=== PATIENT | male | born 1950 | race Caucasian/White ===

== ENCOUNTER → 2016-12-01 | Outpatient (CLI) | payer OTHER, BC ==
[~2016-12-01] VITALS: Ht 180.3 cm; Wt 109.8 kg
[~2016-12-01] MED LIST: B12; CELEBREX 200 M200 M1 PO; CLONAZEPAM 0.50.5 M1 PO; CYCLOBENZAPRINE10 MG PO; CYMBALTA30 MG PO; CYMBALTA60 MG PO; ELIQUIS5 MG PO; FLEXERIL PO; KEPPRA 500 MG500 M1 PO; LATUDA20 MG PO; LIPITOR 20 MG T20 M1 PO; MONISTAT 324 GM TOP; MS CONTIN15 MG PO; OXYCODONE HCL5 M1 PO; OXYCODONE-ACET1 EAC2 PO; OXYCONTIN10 M1 PO; PERCOCET 10-321 EACH PO; PRAVACHOL40 MG PO; TOPROL XL25 MG PO; TRAZODONE 150150 M1 PO; TRAZODONE HCL100 MG PO; TRILEPTAL150 MG PO; VITAMIN E400 UNIT PO; ZONEGRAN100 MG PO; [UNRECOGNIZED DRUG - OTHER]
--- NOTE | ~2016-12-01 | HPC ---
[facility] [place] [address] PAIN MANAGEMENT CONSULTATION Name: REE ADEN Room #: REG RADHA Cain#: [id number] Admission: 12/01/16 Attend Phys: Abebe Whitten MD Discharge: Date of : 54 Report #: [id number] THIS REPORT FOR: //name// CC: Abebe Woodard DATE OF SERVICE: 12/01/2016 DATE OF SERVICE: 12/01/2016 Followup visit for axial low back pain in the area of the sacroiliac joint bilaterally, management of intrathecal infusion pump. The patient returns to pain clinic today and reports that his pain is up in the region of his low back. On most days, his pain is in 8. His son was in the waiting room, but I did go out to talk with ____, and he said that he complains nearly daily of pain down low in the low back bilateral. Today, he says he has some radiating pain into the left leg, but typically the pain is mostly axial. Described as cramping, sharp, stabbing and aching. In treatment of pain, he utilizes his intrathecal pump effectively. It provides a low dose of hydromorphone currently at 0.9 mg a day. So, about a month and a half to 2 months of pain medication available in his pump. Other medications are Lipitor, clonazepam, Trileptal, Cymbalta, Flexeril, Eliquis, Toprol, trazodone and Zonegran. ALLERGIES: None. PAST MEDICAL HISTORY: Remarkable for depression, hyperlipidemia, and seizure disorder. He is on Eliquis due to atrial fibrillation. PHYSICAL EXAMINATION: He is a very pleasant 66-year-old. His blood pressure 120/74, heart rate 57, irregular. Examination of the pump area reveals small bruise above the pump. This is likely where he was pumped into the edge of the table or counter top. The pump is fairly deep. Examination of the low back reveals minimal tenderness over the midline, but there is bilateral significant tenderness over the sacroiliac joints. Straight leg raising is negative for radiculopathy. Sensation and strength in lower extremities is normal. IMPRESSION: 1. Low back pain with significant tenderness over the sacroiliac joints with Christina. 2. Management of intrathecal infusion pump. RECOMMENDATIONS: [facility] [address] [place] [address] PAIN MANAGEMENT CONSULTATION Name: REE ADEN Room #: REG [facility] Ant#: [id number] Admission: 12/01/16 Attend Phys: Abebe Whitten MD Discharge: Date of : 54 Report #: [id number] 1. Intrathecal pump evaluation was performed today due to difficulties with his last refill. He had a couple of days where he felt odd after his refill and he also is having increased pain. We have had recent episodes of intrathecal pump ____ and also 1 pump that has been infusing in an erratic fashion. Because of his previous issues, I felt that it would be worthwhile to perform pump aspiration test, in which I would simply remove the volume into the pump confirmed with that expected by a c programmer and reinstilled it back into the pump. 2. Bilateral sacroiliac joint pain has persisted now since his last visit with Dr. Lynn. Dr. Lynn recommended consideration of bilateral sacroiliac joints under fluoroscopic guidance and I would agree that seems to be worthwhile approach, given the fact that he is already on an intrathecal medication and is not helping. I would also consider increasing his intrathecal pump by 10% at the same time to see if we can provide better relief of his low back pain without starting additional medication. PROCEDURE: 1. Intrathecal pump aspiration and refill. The skin was prepped with ChloraPrep and skin anesthetized. His pump is very difficult to palpate at unusual angle. Despite our experience of filling multiple pumps per week, I did find it also challenging to identify the center of the pump on more than one occasion and needle insertion site. Like Dr. Lynn, I choose to take him to the fluoroscopic suite where we intended to perform sacroiliac joint injections to perform the test. Once there, I was able to identify the location of the port and perform the aspiration test without difficulty. We expected reservoir volume of 14.3 and I removed 13.5. This is within accepted limits. The medication was reinstilled back into the pump and a reprogramming session was performed to provide 11% increase and hydromorphone at 1.0 mg per day. Due to the Eliquis, he did develop certain significant bruising around the area of the needle insertion site and ice was applied after the procedure in the recovery room. This should resolve with time and should not be a serious complication. 2. Bilateral sacroiliac joints under fluoroscopic guidance. Skin prepped with ChloraPrep bilaterally. I began first on the left. Significant arthrosis of the sacroiliac joint was observed on the left. A #25-gauge needle was gently advanced into the lower capsule of the sacroiliac joint using #25-gauge needle. I injected 1 mL of Omnipaque demonstrating spread of dye along the joint space. This was then followed by 3 mL of 0.25% bupivacaine and 20 mg of triamcinolone. Needle was removed. C-arm was then moved to the right and image injection was performed there. He tolerated both injections well, ice was placed in recovery room. He was observed for a short time of discharge. [facility] [address] [place] [address] PAIN MANAGEMENT CONSULTATION Name: REE ADEN Room #: REG RADHA Cain#: [id number] Admission: 12/01/16 Attend Phys: Abebe Whitten MD Discharge: Date of : 54 Report #: [id number] We will follow up for pump refill and about a month and a half, we will call if there are any problems or questions. By: 1127 1230 Abebe Whitten MD /nt
[2016-12-01 09:26] VITALS: BP 120/74
== END | disposition home or self-care (01) ==
LOC: PAIN 07:01
DX: M53.3 Sacrococcygeal disorders, not elsewhere classified (principal); M54.5 Low back pain
CPT/HCPCS: 62370; G0260

== ENCOUNTER → 2017-01-26 | Outpatient (CLI) | payer OTHER, BC ==
[~2017-01-26] VITALS: Ht 180.3 cm; Wt 106.9 kg
[~2017-01-26] MED LIST changes: +ANDROGEL1.25 GM TD
--- NOTE | ~2017-01-26 | HPC ---
[facility] [place] [address] [address] PAIN MANAGEMENT CONSULTATION Name: KEIKOREE Rodriguez Room #: REG RADHA RamDylanAutumnDylan#: [id number] Admission: 01/26/17 Attend Phys: Abebe Whitten MD Discharge: Date of : 54 Report #: [id number] THIS REPORT FOR: //name// CC: Abebe Woodard NP DATE OF SERVICE: 01/26/2017 Followup visit for management of intrathecal infusion pump. The patient presents to pain clinic for refill of his intrathecal infusion pump. He has hydromorphone infusing at 1 mg per day. He is very pleased with his pump, still providing good relief of pain. Pain score today in the clinic was 1-2. No adjustments in the infusion necessary. Pain has mostly been in his right hip recently. PHYSICAL EXAMINATION: Pleasant, alert and oriented, small little butterfly rash across the bridge of his nose. His blood pressure is 137/85, heart rate 92, respirations 16. BMI is 32.0. He is able to move and stand without too much difficulty. He ambulates without a cane or walking device. He has tenderness in his low back and also pain with internal and external rotation. Straight leg raising on the right hip. IMPRESSION: 1. Low back pain with tenderness of the sacroiliac joints and lumbar radiculopathy. 2. Bilateral sacroiliac joint improved from injections. 3. Osteoarthritis, multiple joints including hips. 4. History of depression. PROCEDURE: Refill and reprogramming of intrathecal infusion pump. Skin was prepped with ChloraPrep. Skin anesthetized and a 22-gauge non-coring needle advanced in the intrathecal pump. Old medication removed and discharged. Pump was refilled with hydromorphone and reprogrammed. His next refill is in about 90 days. By: [id number] [id number] Abebe Whitten MD /nt
[2017-01-26 14:28] VITALS: BP 137/85
== END ==
LOC: PAIN 06:37
DX: M54.16 Radiculopathy, lumbar region (principal); M16.10 Unilateral primary osteoarthritis, unspecified hip; F32.9 Major depressive disorder, single episode, unspecified

== ENCOUNTER → 2017-04-23 | Outpatient (CLI) | payer OTHER, BC ==
[~2017-04-23] VITALS: Ht 180.3 cm; Wt 108.5 kg
--- NOTE | ~2017-04-23 | HPC ---
[facility] [address] [place] [place] [address] PAIN MANAGEMENT CONSULTATION Name: REE ADEN Room #: REG RADHA Josef.#: [id number] Admission: 04/23/17 Attend Phys: Abebe Whitten MD Discharge: Date of : 54 Report #: [id number] THIS REPORT FOR: //name// CC: Abebe Woodard NP DATE OF SERVICE: 04/23/2017 Followup visit for management of intrathecal infusion pump. The patient returns to pain clinic today for refill of his intrathecal infusion pump. He is doing well on a very low dose of hydromorphone. He is pleased with his intrathecal pump! He is not receiving any other medications currently from our clinic. He is off of all other opioids. He reports that the pain is mostly in his back, although he is having some increased pain into his right leg and right knee. I have agreed to increase his intrathecal pump by about 20% today. I will also increase the concentration of his hydromorphone at next visit, so he does not have to have ____ visits for refill. I think we can do that safely without increasing his risk for intrathecal granuloma. PHYSICAL EXAMINATION: He is pleasant, outgoing man. He is a strong Pentecostal and wears his bright blue T-shirt emblazoned with the name Ej on the front! He is able to move from sitting to standing position, walks without antalgic features. He has tenderness across his low back pain into his right hip with movements, internal and external rotation. Straight leg raising is positive. IMPRESSION: 1. Chronic low back pain with spondylosis and radiculopathy. 2. Osteoarthritis, multiple joints including right hip and knee. 3. History of depression, currently he is doing well from a mood standpoint. PLAN: Refill and reprogram intrathecal infusion pump. PROCEDURE: Skin was prepped with ChloraPrep, skin anesthetized and a 22-gauge non-coring needle advanced into the intrathecal pump. Old medication removed and discarded. Would expect his volumes were equal to those retrieved. The pump was then refilled with hydromorphone and reprogrammed to a dose of 1.2 mg per day. Refill is scheduled for about 2 months. By: 1654 11 Abebe Whitten MD /nt
[2017-04-23 13:29] VITALS: BP 124/61
== END | disposition home or self-care (01) ==
LOC: PAIN 07:26
DX: Z45.1 Encounter for adjustment and management of infusion pump (principal); M47.26 Other spondylosis with radiculopathy, lumbar region; G89.29 Other chronic pain; M19.90 Unspecified osteoarthritis, unspecified site; F32.89 Other specified depressive episodes; Z98.890 Other specified postprocedural states

== ENCOUNTER → 2017-06-29 | Outpatient (CLI) | payer OTHER, BC ==
[~2017-06-29] VITALS: Ht 180.3 cm; Wt 114.8 kg
[~2017-06-29] MED LIST changes: +LASIX 20 MG TAB20 MG PO
--- NOTE | ~2017-06-29 | HPC ---
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 The patient continues to do exceptionally well with his intrathecal pump. He is on no other medications for pain. He reports he has been very active since senior living in his jehovah's witness and is happy with his pain control. His pain score is 0 today. He has an intrathecal pump infusing 1.2 mg of hydromorphone. We have been refilling it about every 76 days. I have increased that concentration today to 10 mg per mL, which will take him at about 4 months. He has a history of depression, but he has done extremely well since pain has been under better control. PHYSICAL EXAMINATION: Pleasant, outgoing [place], moves easily from sitting to standing position. He has mild tenderness across his low back. He is much more obese than when we put in the pump, and the pump is very deep and difficult to palpate. IMPRESSION: 1. Chronic low back pain with spondylosis and radiculopathy, well controlled with his intrathecal pump. 2. Osteoarthritis, multiple joints, primarily right hip and knee. 3. History of depression, in remission. 4. Management of intrathecal infusion pump with refill and reprogramming. Skin was prepped with ChloraPrep. Skin anesthetized and a 22-gauge non-coring needle advanced in the pump. Old medication removed. We expected 3.5 and that we obtained, and it was discarded per protocol. It was then refilled with 19.5 mg of hydromorphone 10 mg per mL, which would require bridge bolus. We kept his dose after the bridge bolus at 1.2 mg a day, will take him up to 144 days. We will see him then for refill. No other medications were ordered. No other treatments are requested. By: [id number] Abebe Whitten MD /nt
[2017-06-29 11:02] VITALS: BP 124/82
== END | disposition home or self-care (01) ==
LOC: PAIN 06:59
DX: M47.26 Other spondylosis with radiculopathy, lumbar region (principal); G89.29 Other chronic pain; M19.90 Unspecified osteoarthritis, unspecified site; F32.5 Major depressive disorder, single episode, in full remission; F41.8 Other specified anxiety disorders; Z79.899 Other long term (current) drug therapy; Z98.890 Other specified postprocedural states

== ENCOUNTER → 2017-11-19 | Outpatient (CLI) | payer OTHER, BC ==
[~2017-11-19] VITALS: Ht 180.3 cm; Wt 107.0 kg
[~2017-11-19] MED LIST changes: +PROBIOTIC1 EAC1 PO
--- NOTE | ~2017-11-19 | HPC ---
[facility] [place] [address] PAIN MANAGEMENT CONSULTATION Name: REE ADEN Room #: REG LISSSuzan Cain#: [id number] Admission: 11/19/17 Attend Phys: Abebe Whitten MD Discharge: Date of : 54 Report #: [id number] THIS REPORT FOR: //name// CC: Gaurav Woodard NP DATE OF SERVICE: 11/19/2017 Followup visit for chronic low back pain with spondylosis and management of intrathecal infusion pump. The patient returns to pain clinic today for refill of his intrathecal infusion pump. He is extremely grateful for this device. It has provided excellent control of his back pain without the need for systemic opioids. He has been receiving hydromorphone at a rate of 1.1 mg per 24 hours. He has had relatively few side effects. The pump has functioned very well over the course of the last several years and I see him really only for pump refill and followup. He tells me that he has been having several bouts of upper respiratory tract infection throughout this winter. His has had the same. It sounds as though they have been trading it back and forth in the house. He has been on antibiotics. He has not been hospitalized; he has not been in Emergency Room. He has had no increased episodes of pain necessitating additional treatments. He remains active. He is a very devout Religious and follows his beliefs faithfully. 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 This is very rewarding to him. We reviewed the PQRS. He does have osteoarthritis of the hip and has plans to have hip replacement in the future. In addition, he has spondylosis. He is receiving no opioid medications and is not on an opioid agreement. He is not a fall risk and he does not use a device or cane or walker for support. He denies use of both tobacco and alcohol. He is not on a blood thinner. PHYSICAL EXAMINATION: VITAL SIGNS: Blood pressure 135/88, heart rate 80. His oxygen saturation is 96%. MUSCULOSKELETAL: He moves easily from standing position and ambulates without difficulty. He has tenderness across his low back with pain in flexion and extension. He also has tenderness and pain in the hip on the left consistent with osteoarthritis. IMPRESSION: 1. Chronic back pain with spondylosis. 2. Osteoarthritis. 3. Management of intrathecal infusion pump. [address] [address] PAIN MANAGEMENT CONSULTATION Name: KEIKOREE Room #: REG [facility]#: [id number] Admission: 11/19/17 Attend Phys: Abebe Whitten MD Discharge: Date of : 54 Report #: [id number] 4. History of depression, well controlled, much improved since beginning pump therapy. PROCEDURE: Refill and reprogram of intrathecal infusion pump. Skin was prepped with ChloraPrep. Skin anesthetized and a 22-gauge non-coring needle advanced into the intrathecal pump. Old medication was removed and discarded. The pump was then refilled with 19.5 mL of hydromorphone 10 mg/mL. A reprogramming session was performed. The information was checked by myself and the nurse and his program chart was initialed. A copy was given to the patient. He is scheduled for his refill in the upcoming months. <ELECTRONICALLY SIGNED> By: Abebe Whitten MD 12/14/17 1408 1031 1147 Abebe Whitten MD /nt
[2017-11-19 10:22] VITALS: BP 123/67
== END | disposition home or self-care (01) ==
LOC: PAIN 09-10 12:47
DX: Z45.2 Encounter for adjustment and management of vascular access device (principal); F32.9 Major depressive disorder, single episode, unspecified; Z79.899 Other long term (current) drug therapy; M19.90 Unspecified osteoarthritis, unspecified site; G89.29 Other chronic pain

== ENCOUNTER → 2018-09-03 | Outpatient (CLI) | payer OTHER, BC ==
--- NOTE | 2018-09-08 11:18 | HPC ---
[facility] [address] [address] PAIN MANAGEMENT CONSULTATION Name: REE ADEN Room #: REG [facility] Kilo.#: [id number] Admission: 09/03/18 Attend Phys: Abebe Whitten MD Discharge: Date of : 54 Report #: [id number] THIS REPORT FOR: //name// CC: Elmo Woodard NP DATE OF SERVICE: 09/03/2018 Followup visit for management of intrathecal infusion pump. The patient returns to pain clinic today for refill of his intrathecal pump. He continues to do well. He has chronic low back pain and spondylosis. The pump medication seems to work quite effectively to help reduce his pain to a tolerable level. The tolerable level is 0 with sitting, but when he is up and walking, the pain can be more severe. He does not want significant changes in his pump. He is morbidly obese. He has gained a lot of weight over the course of last year and refilling his pump has become more challenging. For safety reasons, we have decided to perform this under fluoroscopic guidance, something we do rarely. I did agree to try to do it in the room today, but still was unable to identify the pump opening for refill, so the refill under fluoroscopic guidance seems prudent. PQRS REVIEW: 1. He has no complaints of osteoarthritis noted on the chart. 2. BMI is reportedly 35.0. He appears to have gained more weight than that. 3. Blood pressure 125/73, heart rate 59. 4. Pain intensity 1/10 today. 5. He is not a fall risk. 6. He is on Eliquis. 7. He is not treated for hypertension. 8. He is not taking opioid medications other than that in his pump and is not on an opioid agreement. 9. He does not use tobacco or alcohol. IMPRESSION: 1. Chronic low back pain with spondylosis. 2. Management of intrathecal infusion pump with refill and reprogramming. PROCEDURE: He was taken to fluoroscopic suite. He was placed supine, skin prepped with ChloraPrep over the pump. A 22-gauge non-coring needle advanced in the pump. 2 mL of old medication was removed and discarded per protocol. Pump [facility] [address] [place] [address] PAIN MANAGEMENT CONSULTATION Name: KEIKOREE Room #: [facility].#: [id number] Admission: 09/03/18 Attend Phys: Abebe Whitten MD Discharge: Date of : 54 Report #: [id number] was then refilled with 19.5 mL of medication, hydromorphone 10 mg/mL. Remaining medication in the filter was discarded. He was taken to recovery room for a short stay following the refill and programming information was checked by myself and the nurse he was discharged. Followup visit planned for refill in January. No oral medications were written. <ELECTRONICALLY SIGNED> By: Abebe Whitten MD 09/08/18 1118 1702 1936 Abebe Whitten MD /sina
== END | disposition home or self-care (01) ==
LOC: PAIN 10:30
DX: Z45.1 Encounter for adjustment and management of infusion pump (principal); G89.29 Other chronic pain; M47.816 Spondylosis without myelopathy or radiculopathy, lumbar region; E66.01 Morbid (severe) obesity due to excess calories; I10 Essential (primary) hypertension; Z68.35 Body mass index [BMI] 35.0-35.9, adult; Z79.899 Other long term (current) drug therapy

== ENCOUNTER → 2018-11-25 | Outpatient (CLI) | payer OTHER, BC ==
[~2018-11-25] VITALS: Ht 180.3 cm; Wt 114.1 kg
[~2018-11-25] MED LIST changes: +PROTONIX40 M1 PO; +RANITIDINE HCL300 MG PO
[2018-11-25 10:42] VITALS: BP 126/68
--- NOTE | 2018-11-25 11:16 | NUR ---
Pain Clinic Assessment: 1. History of Osteoarthritis: Not Applicable History of Rheumatoid Arthritis: Not Applicable 2. Height: 5 ft. 11 in. 180.3 cm. Weight: 251.6 lb. oz. 114.125 kg. Patient's BMI: 35.1 3. Vital Signs: BP: 126/68 Pulse: 61 Resp: 20 Temp: 02 Sat: 98 ECG Mon: 4. Pain Intensity: 2 SIT 8-9 AVG 5. Fall Risk: Dizziness: N Needs help standing or walking: N Fallen in the last 3 months: N Fall risk comments: 6. Patient on Blood Thinner: MADYSON 7. History of Hypertension: N 8. Opioid Therapy greater than 6 weeks: N Opiate Contract Signed: 9. Risk Assessment Tool Provided: 10. Functional Assessment Tool: 11. Recreational Drug Use: Never Drug Type: Tobacco Use: Never Smoker Tobacco Type: Amount or Packs/day: How Many Years: Alcohol Use: No Frequency: Quant:
--- NOTE | 2018-11-26 07:54 | HPC ---
[facility] [address] [place] [address] PAIN MANAGEMENT CONSULTATION Name: REE ADEN Room #: REG [facility] Ant#: [id number] Admission: 11/25/18 ������������������ Attend Phys: Isi Friedman Discharge: ������������������ Date of : 54 Report #: [id number] THIS REPORT FOR: //name// CC: Isi Woodard NP DATE OF SERVICE: 11/25/2018 CHIEF COMPLAINT: Followup for chronic low back pain, spondylosis and management of his intrathecal pump. HISTORY OF PRESENT ILLNESS: The patient returns to the pain clinic today stating that he needs to have his pump adjusted. He had seen his GI doctor recently and he has been having some stomach issues as well as some breathing problems. They were wondering if it might be related to his pump. The patient has been stable on this current dose for a significant amount of time, but he has lost 20 pounds according to the patient and they are wondering if maybe he did not need as much medication. The patient tells me he has no back pain currently. He has some back pain when he is doing some activity, but most significantly he is having stomach issues that are causing him pain of 8-9/10 as a cramping, sharp, achy pain. The patient tells me he has seen his director home next week and having a cardiac scan as well. He would like to have his pump adjustment today to see if his breathing issues are related to his narcotic in his pump. ALLERGIES: No known drug allergies. MEDICATIONS: Atorvastatin 20 mg at bedtime, Protonix 40 mg daily, Zantac 300 mg daily, probiotic daily, Lasix 20 mg daily, clonazepam 0.5 mg p.r.n., Cymbalta 90 mg daily, Eliquis 5 mg daily, B12 daily, trazodone 100 mg at bedtime, Zonegran 100 mg at bedtime. PQRS: 1. The patient has osteoarthritis in his hips and lower back. He denies any rheumatoid arthritis. 2. Height is 5 feet 11 inches, weight is 251. The patient's weight is down from his last visit. BMI is 35 today, which according to our records is stable, but the patient tells us that he is down 20 pounds. 3. Vital signs are blood pressure 126/68, pulse of 61, respirations 20, oxygen sat is 98%. 4. Pain score is 2/10 in his abdomen and denies back pain. 5. Fall risk. Denies dizziness, does not need help walking or standing and has not fallen in the last 3 months. 6. The patient is on Eliquis and he does [place] [address] PAIN MANAGEMENT CONSULTATION Name: REE ADEN Room #: REG Suzan Cain#: [id number] Admission: 11/25/18 ������������������ Attend Phys: Isi Friedman Discharge: ������������������ Date of : 54 Report #: [id number] 7. Opioid therapy is greater than 6 weeks; therefore, no opioid signed contract is on the chart. 8. Recreational drug use. He denies. He is not a smoker and he does not drink alcohol. The patient is not on any narcotics orally, so therefore we did not check the prescription monitoring system. He only gets that intrathecally. PHYSICAL EXAMINATION: GENERAL: This is a well-developed, well-nourished, well-hydrated gentleman who appears his stated age, placing his pain score today in his lower back as 0 and his abdomen 2, currently can go up to 8-9 when he is having significant abdominal issues. HEENT: Normocephalic, atraumatic. Extraocular eye muscles are intact. Mucous membranes are moist. LUNGS: The patient has no shortness of breath with sitting here. His respirations are nonlabored at 14 respirations per minute. His oxygen sat today was 99%. The patient tells me he has not had any difficulty breathing today. MUSCULOSKELETAL: The patient has mild tenderness across his low back. He does complain of some abdominal discomfort. The patient has no edema noted in his lower extremities today. He does tell me that occasionally he will notice some swelling in his legs when he has pulse ox that may restrict his circulation. IMPRESSION: 1. Chronic low back pain with spondylosis. 2. Osteoarthritis. 3. Management of intrathecal pump with a decrease in his rate today. PROCEDURE: We decreased his intrathecal pump with a nurse, Kaitlynn, checking my calculations from hydromorphone 1.199 mg per day to a total of 1.081 mg per day. This is a 10% decrease. We will see if this helps the patient feel like he is having any changes in his breathing. I do not think that it is related to his pump because this medicine has been at the stable rate for a significant amount of time, but we will decrease it and see if this is helpful for the patient. If he has not noticed any changes and once he has had his cardiac scans, then we may increase it if he feels like he needs to be increased again. The patient's refill date now for his intrathecal pump will be 02/03/2019. The patient and verbalized understanding. They will call us after they have seen the director home and know the plan of care there and give us an update on how the patient's pain is doing. The patient is seen in collaboration with Dr. Abebe Whitten. ��������������������������������������������� <ELECTRONICALLY SIGNED> ���������������������������������������� By: Isi Friedman ��������������������������������������������� 11/26/18 0754 1342 0005 Isi Friedman /nt
== END | disposition home or self-care (01) ==
LOC: PAIN 06:46
DX: Z45.1 Encounter for adjustment and management of infusion pump (principal); G89.29 Other chronic pain; M47.896 Other spondylosis, lumbar region; Z79.899 Other long term (current) drug therapy; M16.10 Unilateral primary osteoarthritis, unspecified hip

== ENCOUNTER → 2018-12-01 | Outpatient (CLI) | payer OTHER, BC ==
[~2018-12-01] VITALS: Ht 180.3 cm; Wt 112.9 kg
[2018-12-01 12:59] VITALS: BP 128/77
--- NOTE | 2018-12-01 13:00 | NUR ---
Pain Clinic Assessment: 1. History of Osteoarthritis: Not Applicable History of Rheumatoid Arthritis: Not Applicable 2. Height: 5 ft. 11 in. 180.3 cm. Weight: 249.0 lb. oz. 112.946 kg. Patient's BMI: 34.7 3. Vital Signs: BP: 128/77 Pulse: 76 Resp: 18 Temp: 02 Sat: 94 ECG Mon: 4. Pain Intensity: 0 5. Fall Risk: Dizziness: N Needs help standing or walking: N Fallen in the last 3 months: N Fall risk comments: 6. Patient on Blood Thinner: ELIQUIS 7. History of Hypertension: N 8. Opioid Therapy greater than 6 weeks: N Opiate Contract Signed: 9. Risk Assessment Tool Provided: 10. Functional Assessment Tool: 11. Recreational Drug Use: Never Drug Type: Tobacco Use: Never Smoker Tobacco Type: Amount or Packs/day: How Many Years: Alcohol Use: No Frequency: Quant:
--- NOTE | 2018-12-02 07:19 | HPC ---
[facility] [place] [address] PAIN MANAGEMENT CONSULTATION Name: REE ADEN Room #: REG [facility] [id number] Admission: 12/01/18 ������������������ Attend Phys: Isi Friedman Discharge: ������������������ Date of : 54 Report #: [id number] THIS REPORT FOR: //name// CC: Isi Friedman Gaurav Borrego DATE OF SERVICE: 12/01/2018 CHIEF COMPLAINT: Chronic low back pain, spondylosis and management of intrathecal pump. HISTORY OF PRESENT ILLNESS: The patient returns to the pain clinic today requesting a decrease in his pump again. He tells me that he still feels like he is having some breathing issues of shortness of breath and would like his pump decreased. He tells me that he is not having any pain. He has not noticed any change in his pain score since we decreased him 10% a week ago. He, at that time, was supposed to have a stress test done this week for his cardiac issues and his respiratory issues that he has been having. He tells me he has dyspnea even at rest, but the patient tells me that he is leaving to go to [place] soon. His uszheo-[id number] is not doing very well and he and his are driving out there. He tells me he would like his pump decreased before he goes out of town. ALLERGIES: No known allergies. MEDICATIONS: Lipitor 20 mg at bedtime, Protonix 40 mg daily, Zantac 300 mg daily, probiotic once daily, Lasix 20 mg daily, clonazepam 0.5 mg p.r.n., Cymbalta 90 mg daily, Eliquis 5 mg daily, B12 daily, trazodone 100 mg at bedtime and Zonegran 100 mg at bedtime. PQRS: 1. The patient has osteoarthritis in his hips and lower back. He denies any rheumatoid arthritis. 2. Height is 5 feet 11 inches, weight is 249, BMI is 34.7. 3. Vital signs, blood pressure 128/77, pulse is 76, respirations 18, oxygen sat is 94%. 4. Pain score is 0. 5. Fall risk. Denies dizziness, does not need help walking or standing. Has not fallen in the last 3 months. 6. The patient takes Eliquis. Does not take any medicines for hypertension. 7. Opioid therapy is greater than 6 weeks via his pain pump. His risk assessment tool is low. His functional assessment is low as well. 8. Recreational drug use, he denies. He is not a smoker and does not drink alcohol. We did not check the prescription monitoring system since the patient is not filling opioid narcotics from us. [address] [address] PAIN MANAGEMENT CONSULTATION Name: REE ADEN Room #: REG [facility] Ant#: [id number] Admission: 12/01/18 ������������������ Attend Phys: Isi Friedman Discharge: ������������������ Date of : 54 Report #: [id number] PHYSICAL EXAMINATION: GENERAL: This is a well-developed, well-nourished, well-hydrated gentleman who appears his stated age. Placing his pain score at 0 for his current lower back pain. He is not complaining of any abdominal pain either today. HEENT: Normocephalic, atraumatic. Extraocular eye muscles are intact. Mucous membranes are moist. LUNGS: The patient does complain of some dyspnea even at rest. The patient does seem to have problems catching his breath today, though his oxygen saturation is 94% on room air. His respirations were 18 respirations per minute. MUSCULOSKELETAL: Mild tenderness across his lower back. He does not complain of any abdominal discomfort today. He has no edema noted in his lower extremities. He does have some bruising noted on his arms due to his Eliquis, blood thinner that he takes. IMPRESSION: 1. Chronic low back pain with spondylosis. 2. Osteoarthritis. 3. Management of intrathecal pump. 4. Complains of dyspnea today. PROCEDURE: We decreased his intrathecal pump today with Nivia nurse. By checking it together, he currently takes hydromorphone concentration of 10 mg/mL. We decreased his rate to 0.973 mg per day, this is a 10% decrease per the patient's request. He thinks this may be causing some of his dyspnea problems. I did again encourage the patient to see his poolroom table attendant and asked him if his poolroom table attendant was okay with him going to [place] and postponing his cardiac stress test that he was to have done, he said yes, that was fine with moving it to January. I have reiterated again my concerns that I do not believe his respiratory issues are related to his narcotics and his intrathecal pump as he had been on narcotics for a long time and had been at a stable dose. I did encourage him that if he does go to [place] to assist with his ill [id number] if he has any cardiac or respiratory issues, he needs to go to the closest Emergency Room, bring all of his medications with him as well as his intrathecal pump readout to the Emergency Room. The patient verbalizes understanding of this. 5. The patient will call for an appointment for pump refill when he gets back into town. He is now due 02/10/2019. I instructed him to call if need be for an appointment anytime sooner if he has problems arise. ��������������������������������������������� <ELECTRONICALLY SIGNED> ���������������������������������������� By: Isi Friedman ��������������������������������������������� 12/02/18 0719 [id number] Isi Friedman /nt
== END | disposition home or self-care (01) ==
LOC: PAIN 12:35
DX: Z45.1 Encounter for adjustment and management of infusion pump (principal); M47.9 Spondylosis, unspecified; G89.29 Other chronic pain; M16.0 Bilateral primary osteoarthritis of hip; I10 Essential (primary) hypertension; Z79.899 Other long term (current) drug therapy

== ENCOUNTER → 2019-01-05 | Outpatient (CLI) | payer OTHER, BC ==
[~2019-01-05] VITALS: Ht 180.3 cm; Wt 115.7 kg
[2019-01-05 09:23] VITALS: BP 135/78
--- NOTE | 2019-01-05 09:30 | NUR ---
Pain Clinic Assessment: 1. History of Osteoarthritis: Not Applicable History of Rheumatoid Arthritis: Not Applicable 2. Height: 5 ft. 11 in. 180.3 cm. Weight: 255.0 lb. oz. 115.668 kg. Patient's BMI: 35.6 3. Vital Signs: BP: 135/78 Pulse: 74 Resp: 16 Temp: 02 Sat: 95 ECG Mon: 4. Pain Intensity: 7 5. Fall Risk: Dizziness: N Needs help standing or walking: N Fallen in the last 3 months: N Fall risk comments: 6. Patient on Blood Thinner: LONGQUIS 7. History of Hypertension: N 8. Opioid Therapy greater than 6 weeks: N Opiate Contract Signed: 9. Risk Assessment Tool Provided: HIGH 10. Functional Assessment Tool: 11. Recreational Drug Use: Never Drug Type: Tobacco Use: Never Smoker Tobacco Type: Amount or Packs/day: How Many Years: Alcohol Use: Past use Frequency: Quant: 30 YEARS AGO
--- NOTE | 2019-01-06 13:27 | HPC ---
[facility] [address] [place] [address] PAIN MANAGEMENT CONSULTATION Name: REE ADEN Room #: REG [facility] Josef.#: [id number] Admission: 01/05/19 ������������������ Attend Phys: Isi Friedman Discharge: ������������������ Date of : 54 Report #: [id number] THIS REPORT FOR: //name// CC: Isi Friedman Gaurav Borrego DATE OF SERVICE: 01/05/2019 CHIEF COMPLAINT: Chronic low back pain, spondylosis and management of his intrathecal pump. HISTORY OF PRESENT ILLNESS: This is a very pleasant 68-year-old gentleman who returned to the pain clinic to have his intrathecal pump increased. He was here in November several times complaining of shortness of breath, telling us that he thought it was related to his intrathecal pump and asked for it to be decreased. Then, he went to [place] to help care for his [id number] for a while. He continued to have shortness of breath while he was there and his pain increased, so he is back from [place] today wanting it to be increased back up again. The patient tells me that he is having a cardiac stress test next week and he is also having his BiPAP adjusted that he recently received from a sleep study that showed he had severe sleep apnea. He has realized that his pump is not causing his breathing issues. It is either cardiac or respiratory related. The patient complains of low back pain, right hip pain, knee pain, rating as 7/10 today, worse when he is standing or going up steps. He says that sitting and lying down are helpful. He does complain of some constipation and uses MiraLax to control that. He would like a refill or a readjustment with an increase of his pump and to make his pump refill appointment today. ALLERGIES: No known drug allergies. MEDICATIONS: Atorvastatin 20 mg at bedtime, Protonix 40 mg daily, Zantac 300 mg daily, probiotic daily, Lasix 20 mg daily, clonazepam 0.5 mg p.r.n., Cymbalta 90 mg daily, Eliquis 5 mg daily, vitamin B12 daily, trazodone 100 mg at bedtime, Zonegran 100 mg at bedtime and Symproic one table p.o. daily. PQRS: 1. The patient has osteoarthritis in his hips and his lower back. Denies any rheumatoid arthritis. 2. Height is 5 feet 11 inches, weight is 255, BMI is 35. 3. Vital signs: Blood pressure 135/78, pulse is 74, respirations 16, oxygen sat is 95. 4. Pain score is 7/10. 5. Fall risk. He denies dizziness. Does not need help walking or sitting. He has not fallen in the last three months. [address] [address] PAIN MANAGEMENT CONSULTATION Name: REE ADEN Room #: REG [facility] Ant#: [id number] Admission: 01/05/19 ������������������ Attend Phys: Isi Friedman Discharge: ������������������ Date of : 54 Report #: [id number] 6. The patient is on blood thinner of Eliquis and does take medicines for hypertension. 7. Opioid therapy is greater than six weeks. His risk assessment tool is high and his functional assessment is 33/70. 8. Recreational drug use: He denies. He is not a smoker and does not drink alcohol, but did in the past. We did not check the prescription monitoring system since he is not getting narcotics from us. PHYSICAL EXAMINATION: GENERAL: This is a well-developed, well-nourished, well-hydrated gentleman who appears his stated age. Placing his pain score today at 7/10. HEENT: Normocephalic, atraumatic. Extraocular eye muscles are intact. Mucous membranes are moist. LUNGS: No shortness of breath while seated here today. His oxygen level is 95% on room air and his respirations were 16 per minute. MUSCULOSKELETAL: The patient has mild tenderness across his low back. His lower extremity strength judged to be 4/5 bilaterally and symmetrical in his lower extremities. He does walk with a slightly antalgic gait. Also complains of tenderness in his hips bilaterally, which is consistent of his osteoarthritis. IMPRESSION: 1. Chronic low back pain with spondylosis. 2. Osteoarthritis. 3. Management of intrathecal pump with increase in his rate today. PROCEDURE: We increased his intrathecal pump with the nurse, Marilia checking my calculations from hydromorphone 0.973 mg to 1.071 mg, which is a 10% increase in his intrathecal pump rate. We will see if this helps with his pain control and the patient will follow up with his hospitality house supervisor regarding his shortness of breath. We did make an appointment for the patient for his intrathecal pump refill for the end of January with Dr. Abebe Whitten. The patient verbalizes understanding and the patient was seen with Dr. Harvey Lynn who collaborated care today. ��������������������������������������������� <ELECTRONICALLY SIGNED> ���������������������������������������� By: Isi Friedman ��������������������������������������������� 01/06/19 1327 1346 [id number] Isi Friedman /nt
== END | disposition home or self-care (01) ==
LOC: PAIN 07:07
DX: Z45.1 Encounter for adjustment and management of infusion pump (principal)

== ENCOUNTER → 2019-02-03 | Outpatient (CLI) | payer OTHER, BC ==
[~2019-02-03] VITALS: Ht 180.3 cm; Wt 118.0 kg
[~2019-02-03] MED LIST changes: +LISINOPRIL10 MG PO
[2019-02-03 11:46] VITALS: BP 125/81
--- NOTE | 2019-02-03 11:58 | NUR ---
Pain Clinic Assessment: 1. History of Osteoarthritis: Not Applicable History of Rheumatoid Arthritis: Not Applicable 2. Height: 5 ft. 11 in. 180.3 cm. Weight: 260.2 lb. oz. 118.026 kg. Patient's BMI: 36.3 3. Vital Signs: BP: 125/81 Pulse: 65 Resp: 16 Temp: 02 Sat: 95 ECG Mon: 4. Pain Intensity: 0 5. Fall Risk: Dizziness: N Needs help standing or walking: N Fallen in the last 3 months: N Fall risk comments: 6. Patient on Blood Thinner: ELIQUIS 7. History of Hypertension: N 8. Opioid Therapy greater than 6 weeks: N Opiate Contract Signed: 9. Risk Assessment Tool Provided: HIGH-9 10. Functional Assessment Tool: 11. Recreational Drug Use: Never Drug Type: Tobacco Use: Never Smoker Tobacco Type: Amount or Packs/day: How Many Years: Alcohol Use: Past use Frequency: Quant:
--- NOTE | 2019-02-07 18:13 | HPC ---
[facility] [place] [place] [address] PAIN MANAGEMENT CONSULTATION Name: REE ADEN Room #: REG [facility] Cain#: [id number] Admission: 02/03/19 ������������������ Attend Phys: Abebe Whitten MD Discharge: ������������������ Date of : 54 Report #: [id number] THIS REPORT FOR: //name// CC: Phyllis Branham DATE OF SERVICE: 02/03/2019 Followup visit for refill and reprogramming of intrathecal infusion pump. The patient returns to pain clinic today for refill of his pump. He has hydromorphone infusion. He reports his pain is slightly up across his low back and he would like to increase the infusion slightly. He has recently had a stress test scheduled. There was no definitive answer for his shortness of breath. He has a significant family history of coronary artery disease with early deaths in both his father and his brother. He has additional cardiac risks of obesity. He denies use of tobacco, but exercise is somewhat limited. PQRS is positive for obesity with a BMI of 36.3, denies osteoarthritis. He is not hypertensive at this time, but does take Eliquis. He has coronary stents. He is not a fall risk, nor has he fallen in the last 3 months. He is taking no concurrent systemic opioids, all medications provided through his intrathecal pump. Denies use of tobacco and alcohol. It should be noted that he did complete an opioid risk tool and is considered a high risk for addiction with a score of 9, one of the higher numbers we have seen. We do not provide him with any oral medications making the intrathecal pump an excellent choice. PHYSICAL EXAMINATION: Today, he is a very pleasant gentleman. Blood pressure is 125/81, heart rate 65, respirations 16. BMI 36. Moves from sitting to standing position and ambulates with some antalgic features. He has pain across his low back. He is morbidly obese. He has gained a fair amount of weight and the pump is difficult to palpate in the right lower quadrant. There is no evidence of radiculopathy. IMPRESSION: Chronic low back pain with spondylosis. PROCEDURE: Refill and reprogramming of intrathecal infusion pump with increase of dosing. Skin was prepped with ChloraPrep. Skin was anesthetized. A 22-gauge non-coring [place] [id number] PAIN MANAGEMENT CONSULTATION Name: REE ADEN [facility] [id number] Admission: 02/03/19 ������������������ Attend Phys: Abebe Whitten MD Discharge: ������������������ Date of : 54 Report #: [id number] needle advanced in the pump. Old medication removed and discarded. Pump was then refilled with hydromorphone 10 mg/mL 20 mL. Reprogramming session was performed. I increased his pump by 12% back to 1.2 mg per day. Followup visit is planned in the pain clinic for refill in 6 months. ��������������������������������������������� <ELECTRONICALLY SIGNED> ���������������������������������������� By: Abebe Whitten MD ��������������������������������������������� 02/07/19 1813 1814 1347 Abebe Whitten MD /sina
== END | disposition home or self-care (01) ==
LOC: PAIN 06:46
DX: Z45.1 Encounter for adjustment and management of infusion pump (principal); M47.896 Other spondylosis, lumbar region; G89.29 Other chronic pain; M54.5 Low back pain; E66.01 Morbid (severe) obesity due to excess calories; Z68.36 Body mass index [BMI] 36.0-36.9, adult; Z79.891 Long term (current) use of opiate analgesic; Z79.01 Long term (current) use of anticoagulants; Z82.49 Family history of ischemic heart disease and other diseases of the circulatory system; Z98.890 Other specified postprocedural states; Z79.899 Other long term (current) drug therapy

== ENCOUNTER → 2019-06-27 | Outpatient (CLI) | payer OTHER, BC ==
[~2019-06-27] VITALS: Ht 180.3 cm; Wt 119.2 kg
[~2019-06-27] MED LIST changes: +NEO/POLYMIXIN/DE5 M1 OPHTHALMIC
--- NOTE | ~2019-06-27 | HPC ---
[facility] [place] [address] [address] PAIN MANAGEMENT CONSULTATION Name: REE ADEN Room #: REG RADHA Bahena.#: [id number] Admission: 06/27/19 Attend Phys: Abebe Whitten MD Discharge: Date of : 54 Report #: [id number] THIS REPORT FOR: //name// CC: Elmo Carlos DO Abebe Whitten DATE OF SERVICE: 06/27/2019 Followup visit for refill of intrathecal infusion pump for the treatment of chronic intractable low back pain. The patient returns to pain clinic today with his . He is here today for refill of his intrathecal infusion pump. Pump is infusing hydromorphone at a very low rate. His daily dose is 1.1 mg. This is less than 0.05 mg per hour. This has done a nice job of controlling his pain, which is at a 1/10 today. We will not make further adjustments. His reports that he has been seen for central sleep apnea. The intrathecal pump has been implicated. We discussed the very low dose of medication he is receiving. It is possible; however, intrathecal medication injected into the spinal fluid migrates only minimally into the central compartment, i.e., the brain and I think unlikely that it is resulting in his central sleep apnea. We have reviewed other medications, which may play a role. Oral medications, I believe may be much more likely. MEDICATIONS: Include lisinopril, atorvastatin, pantoprazole, ranitidine, probiotic, Lasix, clonazepam, usually taken earlier in the day; Cymbalta, also taken earlier in the day; Eliquis;, B12; Zonegran at bedtime for depression and trazodone 100 mg at bedtime for sleep and depression. The latter 2 medications, I believe, are the most likely to result in central sleep apnea type symptoms for him. PQRS REVIEW: 1. He has spondylosis of the cervical spine, but denies other arthritis at this time. 2. BMI is 36.7. He has gained a substantial amount of weight since he was initially seen in our clinic. 3. Vital signs: Blood pressure 112/56, heart rate 65, respirations 16. 4. Pain intensity 1-10. 5. Denies dizziness. Denies help necessary for walking or standing and he has not fallen in the last 3 months. He is not a fall risk. 6. He is on the blood thinner, Eliquis. 7. No history of hypertension. 8. No use of oral systemic opioids. [address] [address] PAIN MANAGEMENT CONSULTATION Name: REE ADEN Michael Room #: REG [facility].#: [id number] Admission: 06/27/19 Attend Phys: Abebe Whitten MD Discharge: Date of : 54 Report #: [id number] 9. He has completed an opioid risk tool and is considered at high risk for addiction to oral opioids and other centrally acting medications scored 9. 10. Functional assessment score 33/70. 11. He denies use of tobacco and alcohol. PHYSICAL EXAMINATION: VITAL SIGNS: As noted. GENERAL: Pleasant, alert and oriented, moves independently from sitting to standing position. BACK: Range of motion of the lumbar spine is limited in flexion, extension and rotation. ABDOMEN: Nontender. He has a pump in his right lower abdomen, it is very difficult to palpate due to his increase of weight. EXTREMITIES: Straight leg raising is negative. IMPRESSION: 1. Chronic low back pain with spondylosis. 2. Management of intrathecal infusion pump. 3. Chronic depression, which is currently well managed. 4. Central sleep apnea by report. 5. History of coronary artery disease. PLAN: Refill and reprogramming intrathecal infusion pump. PROCEDURE: Skin was prepped with ChloraPrep. A 22-gauge non-coring needle advanced in the pump. Old medication removed and discarded. Medication was discarded per protocol. The pump was then refilled with hydromorphone 10 mg per mL and reprogramming session was performed to provide 1.1 mg of hydromorphone per 24 hours. Programming information was checked by myself and the nurse. Please note that this was performed in the fluoroscopic suite. It is very difficult to feel his intrathecal pump and even palpate it, much less find the opening. The center was identified easily. Using fluoroscopic guidance, we were able to safely perform the refill. Followup visit is planned in 3 months. By: [id number] Abebe Whitten MD /nt
[2019-06-27 10:12] VITALS: BP 112/56
--- NOTE | 2019-06-27 10:55 | NUR ---
Pain Clinic Assessment: 1. History of Osteoarthritis: NECK History of Rheumatoid Arthritis: DENIES 2. Height: 5 ft. 11 in. 180.3 cm. Weight: 262.8 lb. oz. 119.206 kg. Patient's BMI: 36.7 3. Vital Signs: BP: 112/56 Pulse: 65 Resp: 16 Temp: 02 Sat: 97 ECG Mon: 4. Pain Intensity: 6 5. Fall Risk: Dizziness: N Needs help standing or walking: N Fallen in the last 3 months: N Fall risk comments: 6. Patient on Blood Thinner: LONGQUISSA 7. History of Hypertension: N 8. Opioid Therapy greater than 6 weeks: N Opiate Contract Signed: 9. Risk Assessment Tool Provided: HIGH-9 10. Functional Assessment Tool: 11. Recreational Drug Use: Never Drug Type: Tobacco Use: Never Smoker Tobacco Type: Amount or Packs/day: How Many Years: Alcohol Use: Past use Frequency: Quant:
== END | disposition home or self-care (01) ==
LOC: PAIN 06:45
DX: Z45.1 Encounter for adjustment and management of infusion pump (principal); M54.5 Low back pain; G89.29 Other chronic pain; I25.10 Atherosclerotic heart disease of native coronary artery without angina pectoris; M47.896 Other spondylosis, lumbar region; F32.89 Other specified depressive episodes; G47.31 Primary central sleep apnea; Z79.899 Other long term (current) drug therapy; Z98.890 Other specified postprocedural states; Z79.891 Long term (current) use of opiate analgesic

== ENCOUNTER → 2019-12-08 | Outpatient (CLI) | payer OTHER, BC ==
[~2019-12-08] VITALS: Ht 180.3 cm; Wt 125.2 kg
--- NOTE | ~2019-12-08 | HPC ---
[facility] [place] [address] PAIN MANAGEMENT CONSULTATION Name: KEIKOREE Room #: REG RADHA Josef.#: [id number] Admission: 12/08/19 Attend Phys: Abebe Whitten MD Discharge: Date of : 54 Report #: [id number] THIS REPORT FOR: cc: Phyllis Carlos Maggie M. DO Morgan, Richard L. MD ~ CC: Phyllis Ford DATE OF SERVICE: 12/08/2019 Followup visit for refill and adjustment, reprogramming of intrathecal infusion pump. The patient returns to clinic today for refill of his intrathecal pump. He is receiving hydromorphone at relatively low dose and is doing well. He reports that his pain score has been modest and he does not need additional medication. PQRS was completed. He has gained quite a bit of weight. His BMI is now 38.5. His blood pressure is 139/67, heart rate 72, respirations 18. He has some cervical spondylosis, but complains of no other arthritic joints. Pain intensity 4/10 at the maximum with his pump. He has not fallen. He is on Eliquis. He has no history of hypertensive medications nor is he on oral opioids. He has some extreme risk of addiction with high score of 9/10 and 9 suggesting that addiction would be an issue. He does not take any oral opioid medication. He denies use of tobacco or alcohol use. ___ Bahai. Brings his Bible with him to each appointment. We discussed verses. PHYSICAL EXAMINATION: Obese gentleman. He moves independently. He is very pleasant, outgoing with no signs of depression, anxiety or overmedication. IMPRESSION: 1. Chronic intractable low back pain with spondylosis. 2. Management of intrathecal infusion pump with refill and reprogramming. 3. Coronary artery disease. 4. Central sleep apnea. 5. History of depression, currently in remission and is quite stable. PROCEDURE: Refill and reprogramming intrathecal infusion pump under fluoroscopic guidance. He is one of the very few patients for whom I feel uncomfortable refilling his pump without the guidance of fluoroscopy. He has put on additional weight and his pump is deep. In addition, he has allowed his pump to nearly run dry, so we do not have the confirmation. He was taken [place] [address] PAIN MANAGEMENT CONSULTATION Name: REE ADEN Room #: REG RADHA Cain#: [id number] Admission: 12/08/19 Attend Phys: Abebe Whitten MD Discharge: Date of : 54 Report #: [id number] reason to perform the procedure. Skin was prepped with ChloraPrep and a 22-gauge non-coring needle was advanced with the guidance of fluoroscopy into the intrathecal pump. I was able to aspirate 1.5 mL of clear fluid confirming placement. I then used a normal technique to refill the pump with a total of 19.5 mL of hydromorphone and reprogramming session was performed. His next refill is not scheduled until April. Programming information was checked. Old medication was discarded per protocol and plan to see him back in the pain clinic in April. By: [id number] Abebe Whitten MD /nt
[2019-12-08 14:21] VITALS: BP 139/67
--- NOTE | 2019-12-08 14:24 | NUR ---
Pain Clinic Assessment: 1. History of Osteoarthritis: NECK History of Rheumatoid Arthritis: DENIES 2. Height: 5 ft. 11 in. 180.3 cm. Weight: 276.0 lb. oz. 125.193 kg. Patient's BMI: 38.5 3. Vital Signs: BP: 139/67 Pulse: 72 Resp: 18 Temp: 02 Sat: 95 ECG Mon: 4. Pain Intensity: 3-4 5. Fall Risk: Dizziness: N Needs help standing or walking: N Fallen in the last 3 months: N Fall risk comments: 6. Patient on Blood Thinner: LONGQUIS 7. History of Hypertension: N 8. Opioid Therapy greater than 6 weeks: N Opiate Contract Signed: 9. Risk Assessment Tool Provided: HIGH-9 10. Functional Assessment Tool: 11. Recreational Drug Use: Never Drug Type: Tobacco Use: Never Smoker Tobacco Type: Amount or Packs/day: How Many Years: Alcohol Use: Past use Frequency: Quant:
== END | disposition home or self-care (01) ==
LOC: PAIN 06:51
DX: Z45.1 Encounter for adjustment and management of infusion pump (principal); M47.896 Other spondylosis, lumbar region; I25.10 Atherosclerotic heart disease of native coronary artery without angina pectoris; G47.37 Central sleep apnea in conditions classified elsewhere; G89.29 Other chronic pain; Z79.01 Long term (current) use of anticoagulants

== ENCOUNTER → 2020-02-27 | Outpatient (CLI) | payer OTHER, BC ==
[~2020-02-27] VITALS: Ht 180.3 cm; Wt 115.8 kg
[~2020-02-27] MED LIST changes: +OMEPRAZOLE 20 M20 M1 PO
[2020-02-27 10:50] VITALS: BP 134/68
--- NOTE | 2020-02-27 11:06 | NUR ---
Pain Clinic Assessment: 1. History of Osteoarthritis: NECK History of Rheumatoid Arthritis: DENIES 2. Height: 5 ft. 11 in. 180.3 cm. Weight: 255.2 lb. oz. 115.758 kg. Patient's BMI: 35.6 3. Vital Signs: BP: 134/68 Pulse: 52 Resp: 16 Temp: 02 Sat: 98 ECG Mon: 4. Pain Intensity: 7 5. Fall Risk: Dizziness: N Needs help standing or walking: N Fallen in the last 3 months: N Fall risk comments: 6. Patient on Blood Thinner: LONGQUIS 7. History of Hypertension: N 8. Opioid Therapy greater than 6 weeks: N Opiate Contract Signed: 9. Risk Assessment Tool Provided: HIGH-9 10. Functional Assessment Tool: 11. Recreational Drug Use: Never Drug Type: Tobacco Use: Never Smoker Tobacco Type: Amount or Packs/day: How Many Years: Alcohol Use: Past use Frequency: Quant:
--- NOTE | 2020-03-02 15:51 | HPC ---
[facility] [place] [address] [place] [address] PAIN MANAGEMENT CONSULTATION Name: REE ADEN Michael Room #: REG RADHA RamDylanAutumn.#: [id number] Admission: 02/27/20 Attend Phys: Abebe Whitten MD Discharge: Date of : 54 Report #: [id number] THIS REPORT FOR: cc: Phyllis Carlos Maggie M. DO Morgan, Richard L. MD ~ CC: Phyllis Ford DATE OF SERVICE: 02/27/2020 Followup visit for adjustment of intrathecal infusion pump. The patient has chronic low back pain and spondylosis. He has had a previous lumbar surgery. He has done very well with a monotherapy, hydromorphone and in the intrathecal pump. Pain is now increasing in severity in his back and he has some sciatica-like symptoms in his left leg. Pain begins in his calf with numbness, tingling, burning sensation. He does not have a lot of pain in his low back. Pain is worse with standing and walking. PHYSICAL EXAMINATION: GENERAL: He is a pleasant, soft spoken gentleman. VITAL SIGNS: Blood pressure 134/68, heart rate 52, respirations 16, O2 sat 98. Pain intensity 7. CHEST: Clear. CARDIAC: Rhythm is regular. MUSCULOSKELETAL: Multiple scars are noted throughout the torso, front and back. I asked him about trauma. He said that these are just from his life experiences, although it looks like more than that to me. I did not pursue it further. There is a scar from previous surgery and also from placement of his intrathecal catheter. There is some tenderness overlying his pump and some slight bruising there as well. Examination of the low back reveals pain with forward flexion, extension, rotation, [id number] tilt. Most notable is a positive straight leg raising test reproducing the pain into his calf and foot, which he describes as burning. This is exacerbated by dorsiflexion of the foot. Deep tendon reflexes are trace to 1+ bilaterally at the knees and ankles. Sensation diminished in the left calf. IMPRESSION: 1. Chronic low back pain with spondylosis, now with left lumbar radiculopathy L5-S1. 2. Management of intrathecal infusion pump. Reprogramming session was performed and I increased his pump from 1.2 mg of hydromorphone per day to 1.4 mg per day. Information was checked by myself and the nurse and okayed. Copy of the information provided to [place] [address] PAIN MANAGEMENT CONSULTATION Name: REE ADEN Michael Room #: REG CL Ant#: [id number] Admission: 02/27/20 Attend Phys: Abebe Whitten MD Discharge: Date of : 54 Report #: [id number] If he is not better in 2 weeks, I would recommend that we perform a transforaminal epidural injection on the left, covering the L5-S1 nerve roots. We could use an L4-L5 or L5-S1 approach. Appointment was made. If he is doing well with the pump adjustment, we will cancel the injection. <ELECTRONICALLY SIGNED> By: Abebe Whitten MD 03/02/20 1551 [id number] Abebe Whitten MD /nt
== END | disposition home or self-care (01) ==
LOC: PAIN 06:52
PROVIDERS: ATTEND Anesthesiology Pain Medicine
DX: Z45.1 Encounter for adjustment and management of infusion pump (principal); G89.29 Other chronic pain

== ENCOUNTER → 2020-03-23 | Outpatient (CLI) | payer OTHER, BC | LOC: LAB 10:04 | PROVIDERS: ATTEND Anesthesiology | DX: Z01.812 Encounter for preprocedural laboratory examination (principal); Z11.59 Encounter for screening for other viral diseases ==

== ENCOUNTER → 2020-04-19 | Outpatient (CLI) | payer OTHER, BC ==
[~2020-04-19] VITALS: Ht 180.3 cm; Wt 111.3 kg
--- NOTE | ~2020-04-19 | HPC ---
[facility] [place] [address] [place] [address] PAIN MANAGEMENT CONSULTATION Name: KEIKOREE Room #: REG LISSSuzan Bahena.#: [id number] Admission: 04/19/20 Attend Phys: Abebe Whitten MD Discharge: Date of : 54 Report #: [id number] THIS REPORT FOR: cc: Phyllis Carlos,Abebe Davis MD ~ CC: Phyllis Whitten DATE OF SERVICE: 04/19/2020 Followup visit for chronic intractable pain with spondylosis and radiculopathy, refill of intrathecal infusion pump. The patient returns to pain clinic today for refill of his intrathecal pump. His last refill was on 02/27/2020. He has hydromorphone in his pump infusing at a rate of 1.2 mg per day. His last refill was challenging and I had to take him to the fluoroscopic suite. I marked the location of the port on a drawing on his chart, but even with that today, I was unable to locate the refill port without fluoroscopy. He has lost some weight, but they are challenges and I will likely continue to fill his pump under fluoroscopy. He says he continues to have pain that is intermittent. Today, it is not too bad. He scores his pain as a 0 at the initiation of his refill. His pump is 1.3 mg of hydromorphone per day and that dose will remain unchanged. Pain is worse with standing and walking. PQRS REVIEW: He does have a history of spondylosis of the cervical spine, but denies other joint pains at this time. His weight is down, but he still is obese with a BMI of 34.2. He is not hypertensive. Blood pressure 129/66, heart rate 70, respirations 16, O2 sat 96, pain intensity maximum over the last few weeks has been 3. Zero today during the visit and discharged. He has not had trouble getting up and down, but has fallen in the last 3 months. He has fallen due to unsteadiness and not dizziness. He is not on any oral opioids. His risk assessment tool, however, score is high and he should avoid them. He scores a 9, one of the higher scores we see. Functional assessment tool is not bad at 33/70. He denies use of tobacco and alcohol. IMPRESSION: 1. Chronic low back pain with spondylosis. Intermittent lumbar radiculopathy. 2. Management of intrathecal infusion pump with refill and reprogramming session. PROCEDURE: After informed consent, he was taken to the fluoroscopic suite. Skin was prepped with ChloraPrep. Using C-arm guidance, I advanced needle into the intrathecal pump. A 2 mL of fluid were removed from the pump confirming [facility] [address] [place] [address] PAIN MANAGEMENT CONSULTATION Name: KEIKOREE Room #: REG RADHA Cain#: [id number] Admission: 04/19/20 Attend Phys: Abebe Whitten MD Discharge: Date of : 54 Report #: [id number] location. I then refilled the pump with a total of 20 mL of hydromorphone at 10 mg/mL. Reprogramming session performed without increase. His next refill will be scheduled for 08/25/2020. He was scheduled prior to discharge from clinic. By: [id number] 1432 Abebe Whitten MD /nt
[2020-04-19 12:43] VITALS: BP 129/66
--- NOTE | 2020-04-19 13:05 | NUR ---
Pain Clinic Assessment: 1. History of Osteoarthritis: NECK History of Rheumatoid Arthritis: DENIES 2. Height: 5 ft. 11 in. 180.3 cm. Weight: 245.4 lb. oz. 111.313 kg. Patient's BMI: 34.2 3. Vital Signs: BP: 129/66 Pulse: 70 Resp: 16 Temp: 02 Sat: 96 ECG Mon: 4. Pain Intensity: 3 5. Fall Risk: Dizziness: N Needs help standing or walking: N Fallen in the last 3 months: Y Fall risk comments: 6. Patient on Blood Thinner: LONGQUIS 7. History of Hypertension: N 8. Opioid Therapy greater than 6 weeks: N Opiate Contract Signed: 9. Risk Assessment Tool Provided: HIGH-9 10. Functional Assessment Tool: 11. Recreational Drug Use: Never Drug Type: Tobacco Use: Never Smoker Tobacco Type: Amount or Packs/day: How Many Years: Alcohol Use: Past use Frequency: Quant:
== END | disposition home or self-care (01) ==
LOC: PAIN 03-26 07:36
PROVIDERS: ATTEND Anesthesiology Pain Medicine
DX: Z45.1 Encounter for adjustment and management of infusion pump (principal); M47.26 Other spondylosis with radiculopathy, lumbar region; G89.29 Other chronic pain; M54.5 Low back pain; Z98.890 Other specified postprocedural states; Z79.899 Other long term (current) drug therapy; Z87.891 Personal history of nicotine dependence; Z79.01 Long term (current) use of anticoagulants

== ENCOUNTER → 2020-08-09 | Outpatient (CLI) | payer OTHER, BC ==
[~2020-08-09] VITALS: Ht 180.3 cm; Wt 120.2 kg
[~2020-08-09] MED LIST changes: +NEURONTIN 300M300 M2 PO
[2020-08-09 13:37] VITALS: BP 141/66
--- NOTE | 2020-08-09 14:02 | NUR ---
Pain Clinic Assessment: 1. History of Osteoarthritis: NECK History of Rheumatoid Arthritis: DENIES 2. Height: 5 ft. 11 in. 180.3 cm. Weight: 265.0 lb. oz. 120.204 kg. Patient's BMI: 37.0 3. Vital Signs: BP: 141/66 Pulse: 70 Resp: 16 Temp: 02 Sat: 100 ECG Mon: 4. Pain Intensity: 3-4 5. Fall Risk: Dizziness: N Needs help standing or walking: N Fallen in the last 3 months: N Fall risk comments: 6. Patient on Blood Thinner: LONGQUIS 7. History of Hypertension: N 8. Opioid Therapy greater than 6 weeks: N Opiate Contract Signed: 9. Risk Assessment Tool Provided: HIGH-9 10. Functional Assessment Tool: 11. Recreational Drug Use: Never Drug Type: Tobacco Use: Never Smoker Tobacco Type: Amount or Packs/day: How Many Years: Alcohol Use: Past use Frequency: Daily Quant:
== END | disposition home or self-care (01) ==
LOC: PAIN 06:48
PROVIDERS: ATTEND Anesthesiology Pain Medicine
DX: Z45.1 Encounter for adjustment and management of infusion pump (principal); G89.29 Other chronic pain; M47.26 Other spondylosis with radiculopathy, lumbar region; M19.90 Unspecified osteoarthritis, unspecified site; Z98.890 Other specified postprocedural states; Z79.899 Other long term (current) drug therapy; Z79.01 Long term (current) use of anticoagulants

== ENCOUNTER → 2020-11-15 | Outpatient (CLI) | payer OTHER, MEDICARE ==
[~2020-11-15] VITALS: Ht 180.3 cm; Wt 122.7 kg
[~2020-11-15] MED LIST changes: +ACETAMINOPHEN500 MG PO; +ARMODAFINIL150 MG PO
[2020-11-15 09:13] VITALS: BP 129/78
--- NOTE | 2020-11-15 09:29 | NUR ---
Pain Clinic Assessment: 1. History of Osteoarthritis: NECK History of Rheumatoid Arthritis: DENIES 2. Height: 5 ft. 11 in. 180.3 cm. Weight: 270.6 lb. oz. 122.744 kg. Patient's BMI: 37.8 3. Vital Signs: BP: 129/78 Pulse: 66 Resp: 20 Temp: 02 Sat: 96 ECG Mon: 4. Pain Intensity: 5 5. Fall Risk: Dizziness: N Needs help standing or walking: Y Fallen in the last 3 months: N Fall risk comments: 6. Patient on Blood Thinner: LONGQUIS 7. History of Hypertension: N 8. Opioid Therapy greater than 6 weeks: N Opiate Contract Signed: 9. Risk Assessment Tool Provided: HIGH-9 10. Functional Assessment Tool: 11. Recreational Drug Use: Never Drug Type: Tobacco Use: Never Smoker Tobacco Type: Amount or Packs/day: How Many Years: Alcohol Use: Past use Frequency: Quant:
== END | disposition home or self-care (01) ==
LOC: PAIN 06:40
PROVIDERS: ATTEND Clinical Nurse Specialist Adult Health
DX: Z45.1 Encounter for adjustment and management of infusion pump (principal); G89.29 Other chronic pain; M47.26 Other spondylosis with radiculopathy, lumbar region; M19.90 Unspecified osteoarthritis, unspecified site; Z98.890 Other specified postprocedural states; Z79.899 Other long term (current) drug therapy; Z79.891 Long term (current) use of opiate analgesic; Z79.01 Long term (current) use of anticoagulants

== ENCOUNTER → 2020-11-26 | Outpatient (CLI) | payer OTHER, MEDICARE ==
[~2020-11-26] VITALS: Ht 180.3 cm; Wt 123.4 kg
[2020-11-26 13:48] VITALS: BP 122/67
--- NOTE | 2020-11-26 13:53 | NUR ---
Pain Clinic Assessment: 1. History of Osteoarthritis: NECK back History of Rheumatoid Arthritis: DENIES 2. Height: 5 ft. 11 in. 180.3 cm. Weight: 272.0 lb. oz. 123.379 kg. Patient's BMI: 38.0 3. Vital Signs: BP: 122/67 Pulse: 77 Resp: 18 Temp: 02 Sat: 96 ECG Mon: 4. Pain Intensity: 6 5. Fall Risk: Dizziness: N Needs help standing or walking: N Fallen in the last 3 months: N Fall risk comments: 6. Patient on Blood Thinner: LONGQUIS 7. History of Hypertension: N 8. Opioid Therapy greater than 6 weeks: N Opiate Contract Signed: 9. Risk Assessment Tool Provided: HIGH-9 10. Functional Assessment Tool: 11. Recreational Drug Use: Never Drug Type: Tobacco Use: Never Smoker Tobacco Type: Amount or Packs/day: How Many Years: Alcohol Use: Past use Frequency: Quant:
== END | disposition home or self-care (01) ==
LOC: PAIN 12:11
PROVIDERS: ATTEND Clinical Nurse Specialist Adult Health
DX: Z45.1 Encounter for adjustment and management of infusion pump (principal); M47.816 Spondylosis without myelopathy or radiculopathy, lumbar region; G89.29 Other chronic pain; M19.90 Unspecified osteoarthritis, unspecified site; Z98.890 Other specified postprocedural states; Z79.899 Other long term (current) drug therapy; Z96.651 Presence of right artificial knee joint

== ENCOUNTER → 2020-12-10 | Outpatient (CLI) | payer OTHER, MEDICARE ==
[~2020-12-10] VITALS: Ht 180.3 cm; Wt 123.4 kg
[~2020-12-10] MED LIST changes: +KLOR-CON 10 ER10 MEQ PO
[2020-12-10 08:58] VITALS: BP 128/66
--- NOTE | 2020-12-10 09:15 | NUR ---
Pain Clinic Assessment: 1. History of Osteoarthritis: NECK back History of Rheumatoid Arthritis: DENIES 2. Height: 5 ft. 11 in. 180.3 cm. Weight: 272.0 lb. oz. 123.379 kg. Patient's BMI: 38.0 3. Vital Signs: BP: 128/66 Pulse: 67 Resp: 16 Temp: 02 Sat: 97 ECG Mon: 4. Pain Intensity: 7 TO 8; SOMETIMES 10 5. Fall Risk: Dizziness: N Needs help standing or walking: N Fallen in the last 3 months: N Fall risk comments: 6. Patient on Blood Thinner: MADYSON 7. History of Hypertension: N 8. Opioid Therapy greater than 6 weeks: N Opiate Contract Signed: 9. Risk Assessment Tool Provided: HIGH-9 10. Functional Assessment Tool: 11. Recreational Drug Use: Never Drug Type: Tobacco Use: Never Smoker Tobacco Type: Amount or Packs/day: How Many Years: Alcohol Use: Past use Frequency: Quant:
== END | disposition home or self-care (01) ==
LOC: PAIN 07:29
PROVIDERS: ATTEND Anesthesiology Pain Medicine
DX: Z45.1 Encounter for adjustment and management of infusion pump (principal); G89.29 Other chronic pain; M47.26 Other spondylosis with radiculopathy, lumbar region; M54.5 Low back pain; E66.01 Morbid (severe) obesity due to excess calories; Z68.38 Body mass index [BMI] 38.0-38.9, adult; M19.90 Unspecified osteoarthritis, unspecified site

== ENCOUNTER → 2020-12-13 | Outpatient (CLI) | payer OTHER, MEDICARE ==
[~2020-12-13] VITALS: Ht 180.3 cm; Wt 123.4 kg
[2020-12-13 13:37] VITALS: BP 131/66
--- NOTE | 2020-12-13 14:04 | NUR ---
Pain Clinic Assessment: 1. History of Osteoarthritis: NECK back History of Rheumatoid Arthritis: DENIES 2. Height: 5 ft. 11 in. 180.3 cm. Weight: 272.0 lb. oz. 123.379 kg. Patient's BMI: 38.0 3. Vital Signs: BP: 131/66 Pulse: 71 Resp: 20 Temp: 02 Sat: 98 ECG Mon: 4. Pain Intensity: 7-8 W/ACTIVITY 10 AT WORS 5. Fall Risk: Dizziness: N Needs help standing or walking: N Fallen in the last 3 months: N Fall risk comments: 6. Patient on Blood Thinner: LONGQUISSA 7. History of Hypertension: N 8. Opioid Therapy greater than 6 weeks: N Opiate Contract Signed: 9. Risk Assessment Tool Provided: HIGH-9 10. Functional Assessment Tool: 11. Recreational Drug Use: Never Drug Type: Tobacco Use: Never Smoker Tobacco Type: Amount or Packs/day: How Many Years: Alcohol Use: Past use Frequency: Quant:
== END | disposition home or self-care (01) ==
LOC: PAIN 06:56
PROVIDERS: ATTEND Anesthesiology Pain Medicine
DX: Z45.1 Encounter for adjustment and management of infusion pump (principal); M54.5 Low back pain; G89.29 Other chronic pain; Z98.890 Other specified postprocedural states; Z79.899 Other long term (current) drug therapy

== ENCOUNTER → 2020-12-18 | Outpatient (CLI) | payer OTHER, MEDICARE ==
[~2020-12-18] VITALS: Ht 180.3 cm; Wt 116.5 kg
[2020-12-18 12:59] VITALS: BP 137/76
--- NOTE | 2020-12-18 13:03 | NUR ---
Pain Clinic Assessment: 1. History of Osteoarthritis: NECK back History of Rheumatoid Arthritis: DENIES 2. Height: 5 ft. 11 in. 180.3 cm. Weight: 256.8 lb. oz. 116.484 kg. Patient's BMI: 35.8 3. Vital Signs: BP: 137/76 Pulse: 68 Resp: 20 Temp: 02 Sat: 97 ECG Mon: 4. Pain Intensity: 4-5 5. Fall Risk: Dizziness: Y Needs help standing or walking: N Fallen in the last 3 months: N Fall risk comments: 6. Patient on Blood Thinner: MADYSON 7. History of Hypertension: N 8. Opioid Therapy greater than 6 weeks: N Opiate Contract Signed: 9. Risk Assessment Tool Provided: HIGH-9 10. Functional Assessment Tool: 11. Recreational Drug Use: Never Drug Type: Tobacco Use: Never Smoker Tobacco Type: Amount or Packs/day: How Many Years: Alcohol Use: Past use Frequency: Quant:
--- NOTE | 2020-12-20 08:17 | HPC ---
[facility] [place] [address] PAIN MANAGEMENT CONSULTATION Name: REE ADEN Michael Room #: REG RADHA Cain#: [id number] Admission: 12/18/20 Attend Phys: Isi Friedman Discharge: Date of : 54 Report #: [id number] THIS REPORT FOR: cc: Phyllis Carlos Maggie M. DO Hocker,Isi LOZADA ~ DATE OF SERVICE: 12/18/2020 CHIEF COMPLAINT: Chronic low back pain with spondylosis. HISTORY OF PRESENT ILLNESS: This is a 70-year-old gentleman who returns to the pain clinic today reporting that he feels overmedicated. He reports that his pain has decreased slightly since his last visit with Dr. Abebe Whitten where he had his intrathecal pump refilled and had a pump myelogram on 12/13/2020. Prior to that visit, he had had his pump increased several times and about 3-4 days ago he started feeling overmedicated. He states he is drowsy. He is hallucinating. He feels lightheaded and not sure with his balance, though he has not reported any falls. The patient reports not feeling like he has an infection or is sick in any other way. He reports not taking any oral pain medications or any new medications since we have last seen him. Dr. Abebe Whitten did perform his dye study. The intrathecal pump and catheter showed no problems. The patient is in need of a pump replacement later this year, that the pump and catheter were working fine. The patient reports today his pain score is 4-5, sitting in the chair, though it will increase with activity to 7-8. This is the same pain scores he was reporting at his last visit. Normally, his pain is worse with twisting, bending and any activity or standing too long and normally his pain is better with lying down and sitting in the chair. His is with him today. ALLERGIES: No known drug allergies. CURRENT LIST OF MEDICATIONS: Potassium, Tylenol, armodafinil, gabapentin, omeprazole, Zestril, Lipitor, Lasix, Cymbalta, Eliquis, trazodone, and Zonegran. PQRS: 1. He has history of arthritic changes in his neck and back. Denies any rheumatoid arthritis. 2. Height is 5 feet 11 inches, weight is 256, BMI is 35. 3. Vital signs 137/76, pulse is 68, respirations 20, oxygen sat is 97%. 4. Pain score is 4-5 with sitting and 7-8 with activity. 5. The patient complains of slight dizziness, though reports no falling. He is utilizing a cane today. 6. The patient is on Eliquis and no medications for hypertension. 7. Opioid therapy, oral medication is none. He does have a course of intrathecal medications. His risk assessment is high[place] [address] PAIN MANAGEMENT CONSULTATION Name: KEIKOREE Room #: REG RADHA Cain#: [id number] Admission: 12/18/20 Attend Phys: Isi Friedman Discharge: Date of : 54 Report #: [id number] . 8. Recreational drug use, he denies. He is not a smoker and does not drink alcohol. PHYSICAL EXAMINATION: GENERAL: This is alert and orientated, slightly drowsy 70-year-old gentleman who appears his stated age, able to answer all my questions appropriately, today rating his pain score from 4-5 to 7-8. HEENT: Normocephalic, atraumatic. Extraocular eye muscles are intact. He is wearing a mask. MUSCULOSKELETAL: He does move slowly from a seated position, utilizing the arm rest, though he is independent. He utilizes a cane with ambulation, able to walk slowly. Does have a large abdomen due to his weight. His strength in his lower extremities is symmetrical bilaterally, though decreased at 3/5. Normal sensation. IMPRESSION: 1. Chronic low back pain with spondylosis. 2. Lumbar radiculopathy. 3. Osteoarthritis. 4. Morbid obesity. 5. Management of intrathecal infusion pump with reprogramming decreased session today. PROCEDURE: Adjustment of intrathecal infusion pump. Reprogramming session was performed and the intrathecal pump was interrogated via the [employer] device with assistance from [employer] and oversight with Dr. Harvey Lynn. The pump was decreased 15.9% from 1.99 to 1.681 mg per day of hydromorphone. This is back to the previous rate on 12/10/2020. New alarm date will be 03/23/2021. RECOMMENDATIONS: The patient instructed to call tomorrow or no later than to report how he is feeling. Hopefully, his signs of overmedication will decrease as the pump is back to its original rate. The patient instructed that if he continues to feel overmedicated, he may have signs of infection or some other issue going on. He was instructed to go to the Emergency Room or call his primary care office. The patient is with his today and they verbalized understanding. The patient's care collaborated with Dr. Harvey Lynn today. <ELECTRONICALLY SIGNED> By: Isi Friedman 12/20/20 0817 [id number] Isi Friedman /sina
== END ==
LOC: PAIN 11:11
PROVIDERS: ATTEND Clinical Nurse Specialist Adult Health
DX: M47.26 Other spondylosis with radiculopathy, lumbar region (principal); M19.90 Unspecified osteoarthritis, unspecified site; E66.01 Morbid (severe) obesity due to excess calories; F11.20 Opioid dependence, uncomplicated; G89.29 Other chronic pain; Z79.899 Other long term (current) drug therapy

== ENCOUNTER → 2021-02-14 | Outpatient (CLI) | payer OTHER, MEDICARE ==
[~2021-02-14] VITALS: Ht 180.3 cm; Wt 105.8 kg
[2021-02-14 10:30] VITALS: BP 117/66
--- NOTE | 2021-02-14 11:01 | NUR ---
Pain Clinic Assessment: 1. History of Osteoarthritis: NECK back History of Rheumatoid Arthritis: DENIES 2. Height: 5 ft. 11 in. 180.3 cm. Weight: 233.2 lb. oz. 105.779 kg. Patient's BMI: 32.5 3. Vital Signs: BP: 117/66 Pulse: 61 Resp: 16 Temp: 02 Sat: 96 ECG Mon: 4. Pain Intensity: 7-8 W/ACTIVITY 5. Fall Risk: Dizziness: N Needs help standing or walking: N Fallen in the last 3 months: N Fall risk comments: 6. Patient on Blood Thinner: MADYSON 7. History of Hypertension: N 8. Opioid Therapy greater than 6 weeks: N Opiate Contract Signed: 9. Risk Assessment Tool Provided: HIGH-9 10. Functional Assessment Tool: 11. Recreational Drug Use: Never Drug Type: Tobacco Use: Never Smoker Tobacco Type: Amount or Packs/day: How Many Years: Alcohol Use: Past use Frequency: Quant:
== END | disposition home or self-care (01) ==
LOC: PAIN 07:08
PROVIDERS: ATTEND Anesthesiology Pain Medicine
DX: Z45.1 Encounter for adjustment and management of infusion pump (principal); G89.29 Other chronic pain; M47.896 Other spondylosis, lumbar region; M19.90 Unspecified osteoarthritis, unspecified site; E66.01 Morbid (severe) obesity due to excess calories; Z98.890 Other specified postprocedural states; Z79.899 Other long term (current) drug therapy; Z68.32 Body mass index [BMI] 32.0-32.9, adult; Z79.01 Long term (current) use of anticoagulants

== ENCOUNTER → 2021-04-04 | Outpatient (CLI) | payer OTHER, MEDICARE ==
[~2021-04-04] VITALS: Ht 180.3 cm; Wt 107.3 kg
[2021-04-04 09:39] VITALS: BP 135/70
--- NOTE | 2021-04-04 09:49 | NUR ---
Pain Clinic Assessment: 1. History of Osteoarthritis: NECK back History of Rheumatoid Arthritis: DENIES 2. Height: 5 ft. 11 in. 180.3 cm. Weight: 236.6 lb. oz. 107.321 kg. Patient's BMI: 33.0 3. Vital Signs: BP: 135/70 Pulse: 83 Resp: 16 Temp: 02 Sat: 95 ECG Mon: 4. Pain Intensity: 0 5. Fall Risk: Dizziness: N Needs help standing or walking: N Fallen in the last 3 months: N Fall risk comments: 6. Patient on Blood Thinner: LONGQUIS 7. History of Hypertension: N 8. Opioid Therapy greater than 6 weeks: N Opiate Contract Signed: 9. Risk Assessment Tool Provided: HIGH-9 10. Functional Assessment Tool: 11. Recreational Drug Use: Never Drug Type: Tobacco Use: Never Smoker Tobacco Type: Amount or Packs/day: How Many Years: Alcohol Use: Past use Frequency: Quant:
== END | disposition home or self-care (01) ==
LOC: PAIN 07:01
PROVIDERS: ATTEND Anesthesiology Pain Medicine
DX: Z45.1 Encounter for adjustment and management of infusion pump (principal); G89.29 Other chronic pain; M47.26 Other spondylosis with radiculopathy, lumbar region; M19.90 Unspecified osteoarthritis, unspecified site; E66.01 Morbid (severe) obesity due to excess calories; Z98.890 Other specified postprocedural states; Z79.899 Other long term (current) drug therapy; Z79.01 Long term (current) use of anticoagulants; Z68.33 Body mass index [BMI] 33.0-33.9, adult

== ENCOUNTER → 2021-04-29 | Outpatient (CLI) | payer OTHER, MEDICARE ==
[~2021-04-29] VITALS: Ht 180.3 cm; Wt 109.0 kg
[2021-04-29 09:04] VITALS: BP 140/67
--- NOTE | 2021-04-29 09:07 | NUR ---
Pain Clinic Assessment: 1. History of Osteoarthritis: NECK back History of Rheumatoid Arthritis: DENIES 2. Height: 5 ft. 11 in. 180.3 cm. Weight: 240.2 lb. oz. 108.954 kg. Patient's BMI: 33.5 3. Vital Signs: BP: 140/67 Pulse: 65 Resp: 16 Temp: 02 Sat: 97 ECG Mon: 4. Pain Intensity: 0 5. Fall Risk: Dizziness: N Needs help standing or walking: N Fallen in the last 3 months: N Fall risk comments: 6. Patient on Blood Thinner: LONGQUIS 7. History of Hypertension: N 8. Opioid Therapy greater than 6 weeks: N Opiate Contract Signed: 9. Risk Assessment Tool Provided: HIGH-9 10. Functional Assessment Tool: 11. Recreational Drug Use: Never Drug Type: Tobacco Use: Never Smoker Tobacco Type: Amount or Packs/day: How Many Years: Alcohol Use: No Frequency: Quant:
== END | disposition home or self-care (01) ==
LOC: PAIN 07:00
PROVIDERS: ATTEND Anesthesiology Pain Medicine
DX: Z45.1 Encounter for adjustment and management of infusion pump (principal); M54.5 Low back pain; M47.896 Other spondylosis, lumbar region; M19.90 Unspecified osteoarthritis, unspecified site; Z98.890 Other specified postprocedural states; Z79.899 Other long term (current) drug therapy; Z87.891 Personal history of nicotine dependence; Z79.01 Long term (current) use of anticoagulants

== ENCOUNTER → 2021-05-16 | Outpatient (CLI) | payer OTHER, MEDICARE ==
[~2021-05-16] VITALS: Ht 180.3 cm; Wt 108.4 kg
[2021-05-16 09:50] VITALS: BP 131/57
== END ==
LOC: PAIN 08:57
PROVIDERS: ATTEND Anesthesiology Pain Medicine
DX: M47.819 Spondylosis without myelopathy or radiculopathy, site unspecified (principal)

== ENCOUNTER → 2021-06-03 | Outpatient (CLI) | payer OTHER, MEDICARE ==
[~2021-06-03] VITALS: Ht 180.3 cm; Wt 114.2 kg
[2021-06-03 11:33] VITALS: BP 134/68
--- NOTE | 2021-06-03 11:42 | NUR ---
Pain Clinic Assessment: 1. History of Osteoarthritis: NECK back History of Rheumatoid Arthritis: DENIES 2. Height: 5 ft. 11 in. 180.3 cm. Weight: 251.8 lb. oz. 114.216 kg. Patient's BMI: 35.1 3. Vital Signs: BP: 134/68 Pulse: 72 Resp: 18 Temp: 02 Sat: 97 ECG Mon: 4. Pain Intensity: 7 5. Fall Risk: Dizziness: N Needs help standing or walking: N Fallen in the last 3 months: N Fall risk comments: 6. Patient on Blood Thinner: LONGQUIS 7. History of Hypertension: N 8. Opioid Therapy greater than 6 weeks: N Opiate Contract Signed: 9. Risk Assessment Tool Provided: HIGH-9 10. Functional Assessment Tool: 11. Recreational Drug Use: Never Drug Type: Tobacco Use: Never Smoker Tobacco Type: Amount or Packs/day: How Many Years: Alcohol Use: No Frequency: Quant:
== END | disposition home or self-care (01) ==
LOC: PAIN 07:07
PROVIDERS: ATTEND Anesthesiology Pain Medicine
DX: Z45.1 Encounter for adjustment and management of infusion pump (principal); M47.26 Other spondylosis with radiculopathy, lumbar region; G89.29 Other chronic pain; Z98.890 Other specified postprocedural states; Z79.899 Other long term (current) drug therapy; Z79.01 Long term (current) use of anticoagulants

== ENCOUNTER → 2021-07-08 | Outpatient (CLI) | payer OTHER, MEDICARE ==
[~2021-07-08] VITALS: Ht 180.3 cm; Wt 118.4 kg
[2021-07-08 14:20] VITALS: BP 139/65
--- NOTE | 2021-07-08 14:29 | NUR ---
Pain Clinic Assessment: 1. History of Osteoarthritis: NECK back History of Rheumatoid Arthritis: DENIES 2. Height: 5 ft. 11 in. 180.3 cm. Weight: 261.0 lb. oz. 118.389 kg. Patient's BMI: 36.4 3. Vital Signs: BP: 139/65 Pulse: 67 Resp: 22 Temp: 02 Sat: 98 ECG Mon: 4. Pain Intensity: 7 5. Fall Risk: Dizziness: N Needs help standing or walking: N Fallen in the last 3 months: N Fall risk comments: 6. Patient on Blood Thinner: LONGQUIS 7. History of Hypertension: N 8. Opioid Therapy greater than 6 weeks: N Opiate Contract Signed: 9. Risk Assessment Tool Provided: HIGH-9 10. Functional Assessment Tool: 11. Recreational Drug Use: Never Drug Type: Tobacco Use: Never Smoker Tobacco Type: Amount or Packs/day: How Many Years: Alcohol Use: No Frequency: Quant:
== END | disposition home or self-care (01) ==
LOC: PAIN 08:06
PROVIDERS: ATTEND Anesthesiology Pain Medicine
DX: Z45.1 Encounter for adjustment and management of infusion pump (principal); M54.59 Other low back pain; G89.29 Other chronic pain; M47.896 Other spondylosis, lumbar region; Z98.890 Other specified postprocedural states; Z79.899 Other long term (current) drug therapy; Z79.891 Long term (current) use of opiate analgesic; Z79.01 Long term (current) use of anticoagulants

== ENCOUNTER → 2021-09-16 | Outpatient (CLI) | payer OTHER ==
[~2021-09-16] VITALS: Ht 180.3 cm; Wt 126.1 kg
[~2021-09-16] MED LIST changes: +HYDROCODON-ACE1 EAC7 PO
[2021-09-16 10:46] VITALS: BP 132/65
--- NOTE | 2021-09-16 11:00 | NUR ---
Pain Clinic Assessment: 1. History of Osteoarthritis: NECK back History of Rheumatoid Arthritis: DENIES 2. Height: 5 ft. 11 in. 180.3 cm. Weight: 278.0 lb. oz. 126.100 kg. Patient's BMI: 38.8 3. Vital Signs: BP: 132/65 Pulse: 70 Resp: 22 Temp: 02 Sat: 96 ECG Mon: 4. Pain Intensity: 5 5. Fall Risk: Dizziness: N Needs help standing or walking: Y Fallen in the last 3 months: N Fall risk comments: 6. Patient on Blood Thinner: LONGQUIS 7. History of Hypertension: N 8. Opioid Therapy greater than 6 weeks: N Opiate Contract Signed: 9. Risk Assessment Tool Provided: HIGH-9 10. Functional Assessment Tool: 11. Recreational Drug Use: Never Drug Type: Tobacco Use: Never Smoker Tobacco Type: Amount or Packs/day: How Many Years: Alcohol Use: No Frequency: Quant:
== END | disposition home or self-care (01) ==
LOC: PAIN 09:42
PROVIDERS: ATTEND Anesthesiology Pain Medicine
DX: Z45.1 Encounter for adjustment and management of infusion pump (principal); G89.29 Other chronic pain; M54.59 Other low back pain; M47.896 Other spondylosis, lumbar region; M19.90 Unspecified osteoarthritis, unspecified site; Z98.890 Other specified postprocedural states; Z79.899 Other long term (current) drug therapy; Z79.01 Long term (current) use of anticoagulants